=== PATIENT | male | born 2000 | race African-American/Black ===

== ENCOUNTER 2020-10-09 10:55 | Outpatient (CLI) | payer OTHER | END 2020-10-09 10:56 | disposition home or self-care (01) | LOC: TBSIIMAG 10:55 | PROVIDERS: ATTEND Orthopaedic Surgery | DX: M23.91 Unspecified internal derangement of right knee (principal); M25.461 Effusion, right knee; S83.281A Other tear of lateral meniscus, current injury, right knee, initial encounter; S83.241A Other tear of medial meniscus, current injury, right knee, initial encounter; S80.11XA Contusion of right lower leg, initial encounter ==

== ENCOUNTER 2020-10-27 16:42 | Outpatient (CLI) | payer OTHER ==
[2020-10-28 01:19] LABS: SARS-CoV-2 PCR by NAA Not Detected (NotDetected)
== END 2020-10-27 16:43 | disposition home or self-care (01) ==
LOC: LABBT 16:42
PROVIDERS: ATTEND Orthopaedic Surgery
DX: Z01.812 Encounter for preprocedural laboratory examination (principal); M23.91 Unspecified internal derangement of right knee; Z20.822 Contact with and (suspected) exposure to COVID-19
CPT/HCPCS: 87635; U0003; U0005

== ENCOUNTER 2020-10-29 07:22 | Day surgery (SDC) | payer OTHER ==
[2020-10-28 09:15] VITALS: BMI 26.7
[2020-10-29] MEDS ORDERED: Midazolam HCl 2 mg/2 ml Vial ONE (08:00)
[2020-10-29] MEDS ORDERED: Lidocaine 2% w/Epinephrine 1:200K 20 ML VIAL ONE ×2 (08:00→10:24)
[2020-10-29] MEDS ORDERED: Bupivacaine PF 0.5% 30 ML VIAL ONE ×2 (08:00→10:24)
[2020-10-29] MEDS ORDERED: Fentanyl 100 MCG/2 ML VIAL ONE ×2 (08:00→10:22)
[2020-10-29] MEDS ORDERED: PROPOFOL 200 MG/20 ML VIAL ONE (10:24)
[2020-10-29] MEDS ORDERED: Ondansetron PF 4 MG/2 ML Vial ONE (10:24)
[2020-10-29] MEDS ORDERED: Ketorolac Tromethamine 30 MG/ML VIAL ONE (10:24)
[2020-10-29] MEDS ORDERED: Dexamethasone 20 MG/5 ML VIAL ONE (10:24)
== END 2020-10-29 13:45 | disposition home or self-care (01) ==
LOC: SDC 07:22
PROVIDERS: ATTEND Orthopaedic Surgery
PROC: 0SBC4ZZ Excision of Right Knee Joint, Percutaneous Endoscopic Approach (ICD-10-PCS; principal; 2020-10-29)
DX: S83.231A Complex tear of medial meniscus, current injury, right knee, initial encounter (principal); M22.41 Chondromalacia patellae, right knee; Z98.890 Other specified postprocedural states; X58.XXXA Exposure to other specified factors, initial encounter; Y93.61 Activity, american tackle football
CPT/HCPCS: 87635; J0690; J1100; J1885; J2250; J2405; J2704; J3010; S0020; U0003; U0005